=== PATIENT | female | born 1990 | race African-American/Black ===

== ENCOUNTER 2017-04-27 12:24 | Emergency (ER) | payer OTHER ==
[~2017-04-27] VITALS: Ht 165.1 cm; Wt 49.0 kg
[2017-04-27 13:12] LABS: URINE BILIRUBIN NEGATIVE (Negative); URINE BLOOD NEGATIVE (Negative); URINE COLOR YELLOW; URINE GLUCOSE-RANDOM* NEGATIVE (Negative); URINE KETONES TRACE (Negative); URINE NITRITE NEGATIVE (Negative); URINE PROTEIN (DIPSTICK) NEGATIVE (Negative); URINE SPECIFIC GRAVITY 1.025 (1.003-1.035)
[2017-04-27] MEDS ORDERED: KEFLEX500 MG PO (13:37)
[2017-04-27 13:38] LABS: BACTERIA 1-9 Few /HPF (None Seen); CASTS None Seen /LPF (None Seen); SQUAMOUS 4-10 Moderate /LPF (0-3); URINE RBC None Seen /HPF (0-2); URINE WBC 0-5 Rare /HPF (0-5)
[2017-04-27 13:39] LABS: CRYSTALS None Seen /LPF (None Seen)
[2017-04-27 14:45] VITALS: BP 107/62
== END 2017-04-27 14:46 | disposition home or self-care (01) ==
LOC: ER 12:24
PROVIDERS: Nurse Practitioner Family
DX: R30.0 Dysuria (principal)

== ENCOUNTER 2017-09-23 12:16 | Emergency (ER) | payer OTHER ==
[~2017-09-23] VITALS: Ht 165.1 cm; Wt 56.7 kg
[~2017-09-23 12:16] MED LIST: KEFLEX500 MG PO; MACROBID 100 M100 M1 PO; PRENATAL COMPL1 EACH PO
[2017-09-23] MEDS ORDERED: AMOXICILLIN 50500 MG PO (13:21)
== END 2017-09-23 13:34 | disposition home or self-care (01) ==
LOC: ER 12:16
DX: O99.519 Diseases of the respiratory system complicating pregnancy, unspecified trimester (principal); Z3A.00 Weeks of gestation of pregnancy not specified; R05 Cough; R52 Pain, unspecified

== ENCOUNTER 2019-03-10 11:23 | Emergency (ER) | payer OTHER ==
[~2019-03-10] VITALS: Ht 165.1 cm; Wt 54.4 kg
[~2019-03-10 11:23] MED LIST changes: +AMOXICILLIN 50500 MG PO
[2019-03-10 11:52] LABS: URINE BILIRUBIN NEGATIVE (Negative); URINE BLOOD NEGATIVE (Negative); URINE CLARITY CLEAR; URINE COLOR YELLOW; URINE GLUCOSE-RANDOM* NEGATIVE (Negative); URINE KETONES NEGATIVE (Negative); URINE LEUKOCYTES NEGATIVE (Negative); URINE NITRITE NEGATIVE (Negative); URINE PROTEIN (DIPSTICK) NEGATIVE (Negative)
[2019-03-10 12:02] LABS: ABSOLUTE NEUTROPHILS 3.3 thou/uL (1.4-8.2); BASOPHILS 0.5 % (0.0-2.0); HEMATOCRIT 36.9 % (37.0-47.0); HEMOGLOBIN 12.4 gm/dL (12.0-15.0); LYMPHOCYTES 39.5 % (24.0-44.0); MCH 31.4 pg (26.0-34.0); MCHC 33.7 g/dL (28.0-37.0); MCV 93.1 fL (80.0-100.0); MONOCYTES 10.7 % (1.0-8.0); PLATELET COUNT 244 thou/uL (150-400); POLYS 46.3 % (36.0-66.0); RBC 3.96 mil/uL (4.20-5.00); RDW 12.3 % (10.5-14.5)
[2019-03-10 12:20] LABS: CALCIUM 9.5 mg/dL (8.5-10.1); CREATININE 0.5 mg/dL (0.6-1.0); POTASSIUM 3.8 mmol/L (3.5-5.1)
[2019-03-10 12:26] LABS: ALBUMIN 3.8 g/dL (3.4-5.0); TOTAL BILIRUBIN 0.8 mg/dL (<0.1-1.0); TOTAL PROTEIN 7.5 g/dL (6.4-8.2)
[2019-03-10 14:00] VITALS: BP 104/65
== END 2019-03-10 14:00 | disposition home or self-care (01) ==
LOC: ER 11:23
PROVIDERS: Emergency Medicine
DX: O26.891 Other specified pregnancy related conditions, first trimester (principal); R10.31 Right lower quadrant pain; Z3A.01 Less than 8 weeks gestation of pregnancy